=== PATIENT | male | born 1975 | race Caucasian/White ===

== ENCOUNTER 2019-07-18 15:48 | Emergency (ER) | payer SELFPAY ==
[2019-07-18 15:49] VITALS: BP 95/64; PULSE 104; RESP 21; TEMP 36.3; O2SAT 95; BMI 18.2
--- NOTE | 2019-07-18 15:57 | RAD_ITS ---
STUDY: X-RAY - RIGHT HUMERUS REASON FOR EXAM: Male, 43 years old. Trauma TECHNIQUE: 2 view(s) of the humerus. COMPARISON: None. FINDINGS: Normal visualized humerus. There is no demonstrated fracture or osseous destructive process. There is no demonstrated soft tissue abnormality. RAD/Humerus min 2 Views IMPRESSION: Normal x-ray examination of the humerus. Incidental finding of previously described acute fracture of the mid clavicular shaft Electronically Signed: Marco Cobb MD at 16:22 EDT , Service support ,
--- NOTE | 2019-07-18 15:57 | RAD_ITS ---
STUDY: X-RAY - RIGHT CLAVICLE REASON FOR EXAM: Male, 43 years old. Trauma TECHNIQUE: 2 view(s) of the clavicle. COMPARISON: None. FINDINGS: Acute comminuted fracture of the mid clavicle with displacement and overlapping of fracture fragments. Normal visualized pulmonary apex. RAD/Clavicle IMPRESSION: Acute comminuted displaced fracture of the mid clavicle Electronically Signed: Marco Cobb MD at 16:22 EDT , Service support ,
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
[2019-07-18] MEDS: HYDROcodone Bitartrate/Apap 5/325 Tablet PO (16:03)
== END 2019-07-18 17:22 | disposition home or self-care (01) ==
PROVIDERS: Emergency Provider Emergency Medicine
DX: S42.001A Fracture of unspecified part of right clavicle, initial encounter for closed fracture (principal); V19.88XA Pedal cyclist (driver) (passenger) injured in other specified transport accidents, initial encounter; Y93.55 Activity, bike riding; Y99.8 Other external cause status; F17.200 Nicotine dependence, unspecified, uncomplicated
CPT/HCPCS: 73000; 73060; 99283

== ENCOUNTER 2019-08-28 16:13 | Emergency (ER) | payer SELFPAY ==
[2019-08-28 16:15] VITALS: BP 148/100; PULSE 122; RESP 16; TEMP 36.6; O2SAT 99; BMI 18.6
--- NOTE | 2019-08-28 16:25 | ED.VIS.GEN ---
History of Present Illness Chief Complaint: Foreign Body Narrative: 84-year-old male presents with impacted food bolus. States he was eating a hot dog 15 minutes ago when he began vomiting and cannot swallow. Arrival to the emergency department he coughed up this hotdog but then began having right shoulder pain. Recent clavicular fracture. Describes it as a muscle tightening. Denies any numbness or tingling. Denies any new injury. Past Medical History - Allergies and Home Meds Allergies/Adverse Reactions: Allergies Penicillins Allergy (Verified 08/28/19 16:15) Swelling Primary Care Physician: Care Physician,No Primary [Primary Care Provider] - Prior records reviewed: Yes Surgical History: noncontributory Smoking Status: Current every day smoker Review of Systems General: Denies: Chills, Fever, Sweats Eyes: Denies: Visual changes - bilaterally, Diplopia ENT: Denies: Rhinorrhea, Sore throat Cardiovascular: Denies: Chest pain, Palpitations Respiratory: Denies: Dyspnea, Cough, Dyspnea on exertion Gastrointestinal: Reports: Vomiting. Denies: Abdominal pain, Nausea, Diarrhea, Melena, Hematochezia Genitourinary: Denies: Dysuria, Hematuria, Frequency Musculoskeletal: Reports: Arthralgias. Denies: Back pain, Extremity Pain Skin: Denies: Rash, Wounds Neurological: Denies: Headache, Weakness, Numbness Physical Exam Vital Signs/Narrative: Vital Signs Temp Pulse Resp BP Pulse Ox 08/28/19 16:15 97.8 F 122 H 16 148/100 H 99 Inital Vital Signs reviewed: Yes General: Well nourished, Well developed, No Acute Distress Head: Normocephalic, Atraumatic Eyes: Perrl, EOMI ENT: Moist mucous membranes, No rhinorrhea Neck: Supple, Nontender Cardiovascular: Regular rate, Regular rhythm, No murmurs Respiratory: No distress, CTA bilaterally, Chest nontender Abdomen: Soft, Nontender, Nondistended, Normal bowel sounds Back: Nontender, Normal Inspection Extremities: Nontender, No edema Skin: Normal color, No rash Neurological: Alert, Oriented x3, Cranial nerves II-XII grossly intact, Normal Strength, Normal Sensation Psychological: Normal affect, Normal Mood Diagnostic/Tx/Re-eval - Medical Decision Making Patient upon arrival is in distress secondary to suspected food bolus. He cleared it spontaneously without difficulty. Lungs clear to auscultation. Patient then began having right shoulder pain. Known clavicular fracture. Muscle massage was performed which helped the patient with his pain. He was able to return his arm to a sling. Will be discharged home with Zofran and naproxen. Asked to return for new or worsening symptoms. Patient agreeable this plan and discharged home in stable condition. ED Disposition - Plan for ED Patient: Disposition: Home or Assisted Living Diagnosis: Muscle spasm, Food impaction of esophagus Instructions: ESOPHAGEAL FOREIGN BODY, Resolved Prescriptions: Naproxen 500 mg PO BID PRN PRN #12 tab PRN Reason: Pain Score 1-5/10 Prescription Printed Ondansetron [Zofran Odt] 4 mg PO Q8H PRN PRN #12 tab PRN Reason: Nausea/Vomiting Prescription Printed Referrals: Care Physician,No Primary [Primary Care Provider] -
--- NOTE | 2019-08-28 16:35 | ED.RN ---
pt denies nausea. declined zofran. educatio refarding choking foreign body.
== END 2019-08-28 16:44 | disposition home or self-care (01) ==
PROVIDERS: Emergency Provider Emergency Medicine
DX: T18.128A Food in esophagus causing other injury, initial encounter (principal); X58.XXXA Exposure to other specified factors, initial encounter; Y93.89 Activity, other specified; M62.838 Other muscle spasm; F17.200 Nicotine dependence, unspecified, uncomplicated
CPT/HCPCS: 99284

== ENCOUNTER 2019-09-24 23:35 | Emergency (ER) | payer SELFPAY ==
[2019-09-24 23:37] VITALS: BP 136/95; PULSE 95; RESP 20; TEMP 37.2; O2SAT 98; BMI 18.7
--- NOTE | 2019-09-24 23:39 | ED.VIS.GEN ---
History of Present Illness Chief Complaint: Foreign Body Narrative: Patient is a 44-year-old male who presents with chief complaint of choking. He initially refused triage process yelling out that he was choking to and demanding that someone give him the Heimlich maneuver. He states he was eating a pork chop 20 minutes ago and feels like something is stuck in his throat. He is unable to swallow his secretions and is spitting these up. He notes 1 episode of prior similar symptoms with a hot dog which she was eventually able to spit up. He denies any medical history or daily medications. He is otherwise recently been well. Past Medical History - Allergies and Home Meds Allergies/Adverse Reactions: Allergies Penicillins Allergy (Verified 09/24/19 23:36) Swelling Primary Care Physician: Care Physician,No Primary [Primary Care Provider] - Past Medical History: None Surgical History: noncontributory Smoking Status: Never smoker Review of Systems ROS: Unable to Obtain - Uncooperative Physical Exam Inital Vital Signs reviewed: Yes General: Acute Distress, - - Patient standing at the sink spitting into it Head: Normocephalic Eyes: EOMI ENT: Moist mucous membranes, - - Oropharynx clear Neck: Supple Cardiovascular: Regular rate, Regular rhythm Respiratory: No distress, CTA bilaterally Abdomen: Soft, Nontender, Nondistended Skin: Normal color Neurological: Alert Psychological: - - Patient is extremely anxious Diagnostic/Tx/Re-eval - Medical Decision Making Patient's airway is clearly intact. He has clear speech and is able to speak in full long sentences. His presentation is most consistent with an esophageal impaction. IV glucagon as well as Zofran for nausea and Ativan for anxiety ordered. On reevaluation he is resting comfortably but reports no change in his symptoms. I spoke to Dr. Bruner who is on-call for general surgery. She does not perform endoscopy for esophageal impaction. Therefore I discussed the need for transfer with the patient to a facility with gastroenterology available. Patient refuses transfer. He states I am not going somewhere else just to be charged a bunch of money again to get a piece of meat out of my throat. I explained the potential complications that should this not be addressed including esophageal perforation, sepsis, . He states he is willing to accept these risks and signed out AGAINST MEDICAL ADVICE. ED Disposition - Plan for ED Patient: Disposition: Home or Assisted Living Diagnosis: Food impaction of esophagus Referrals: Care Physician,No Primary [Primary Care Provider] - Additional Instructions: You were seen today due to a piece of pork chop stuck in your throat. This did not resolve with medications. We discussed that you needed to be transferred to another hospital with the type of doctor that could perform a scope to fix the problem. You refused transfer. Potential complications include perforation (a hole in the esophagus which is the tube from the mouth to the stomach) which could lead to infection, organ failure, . You are welcome to return for reevaluation at any point. It is very important that you follow-up if symptoms do not resolve.
[2019-09-24] MEDS: Glucagon 1 MG/ML Syringe IV (23:53)
[2019-09-24] MEDS: LORazepam 2 MG/ML Syringe 1 MG IV (23:53)
[2019-09-24] MEDS: Ondansetron 4 MG/2 ML Vial IV (23:53)
[2019-09-25 00:30] VITALS: RESP 16
--- NOTE | 2019-09-25 00:30 | ED.RN ---
DR. COX SPOKE TO PT AND EXPLAINED THAT PATIENT WOULD NEED TRANSFERRED TO A HIGHER LEVEL OF CARE TO REMOVE FB. PT DECLINES TRANSFER STATING HE DON'T WANT ANOTHER BILL. PT VERBALIZED UNDERSTANDING OF [facility] INSTRUCTIONS BUT REFUSED TO TAKE HIS COPIES OF PAPERWORK WITH HIM STATING THAT HE DOESN'T NEED THEM. PT'S FRIEND CAME TO PICK HIM UP
== END 2019-09-25 00:33 | disposition home or self-care (01) ==
PROVIDERS: Emergency Provider Emergency Medicine
DX: T18.128A Food in esophagus causing other injury, initial encounter (principal); X58.XXXA Exposure to other specified factors, initial encounter; Y93.89 Activity, other specified; Z53.29 Procedure and treatment not carried out because of patient's decision for other reasons
CPT/HCPCS: 96374; 96375; 99283; A4216; J1610; J2405

== ENCOUNTER 2020-08-27 00:38 | Emergency (ER) | payer SELFPAY ==
[2020-08-27 00:39] VITALS: BP 125/80; PULSE 124; RESP 18; TEMP 36.7; O2SAT 93; BMI 19.9
--- NOTE | 2020-08-27 00:47 | ED.VIS.GEN ---
History of Present Illness Chief Complaint: Foreign Body Informant: Patient Onset: Today Context: Sudden Onset Timing: Continuous Current Severity: Moderate Maximum Severity: Severe Narrative: Patient is a 45-year-old male who presents to the emergency department esophageal food impaction. The patient states he was eating steak. He states he began to feel like he was choking. His significant other attempted Heimlich. The patient is having difficulty swallowing his secretions. His airway is patent. He is able to speak. He is in no respiratory distress. The patient has had the symptoms twice before. On one time, he did pass on his own. On the second time, he was encouraged that he should be transferred for GI intervention, but he however refused and left AMA. Prior similar symptoms: Yes Recent Illness/Hospitalization: No Past Medical History - Allergies and Home Meds Allergies/Adverse Reactions: Allergies Penicillins Allergy (Verified 08/27/20 00:42) Swelling Primary Care Physician: Gennaro Pinzon MD [STAFF PHYSICIAN] - Prior records reviewed: Yes Past Medical History: - - Prior esophageal food impaction Surgical History: noncontributory Smoking Status: Current every day smoker Review of Systems General: Denies: Chills, Fever, Sweats Eyes: Denies: Visual changes - bilaterally, Diplopia ENT: Denies: Rhinorrhea, Sore throat Cardiovascular: Denies: Chest pain, Palpitations Respiratory: Denies: Dyspnea, Cough, Dyspnea on exertion Gastrointestinal: Reports: Nausea, Vomiting. Denies: Abdominal pain, Diarrhea, Melena, Hematochezia Genitourinary: Denies: Dysuria, Hematuria, Frequency Musculoskeletal: Denies: Back pain, Extremity Pain Skin: Denies: Rash, Wounds Neurological: Denies: Headache, Weakness, Numbness Physical Exam Vital Signs/Narrative: Vital Signs Temp Pulse Resp BP Pulse Ox 08/27/20 00:39 98.1 F 124 H 18 125/80 H 93 Inital Vital Signs reviewed: Yes General: Well nourished, Well developed, No Acute Distress Head: Normocephalic, Atraumatic Eyes: Perrl, EOMI ENT: Moist mucous membranes, No rhinorrhea Neck: Supple, Nontender Cardiovascular: Regular rate, Regular rhythm, No murmurs Respiratory: No distress, CTA bilaterally, Chest nontender Abdomen: Soft, Nontender, Nondistended, Normal bowel sounds Back: Nontender, Normal Inspection Extremities: Nontender, No edema Skin: Normal color, No rash Neurological: Alert, Oriented x3, Cranial nerves II-XII grossly intact, Normal Strength, Normal Sensation Psychological: Normal affect, Normal Mood Diagnostic/Tx/Re-eval - Medical Decision Making The patient was complaining of significant distress when he arrived. However, his airway is patent. He has no trismus or stridor. I can visualize the tip of his epiglottis without evidence of foreign body or erythema. IV was established. I had immediately contacted surgery as the surgeon was in-house doing an operative case. Plan was to proceed with endoscopy. The patient was given glucagon and Ativan. He was able to expel the foreign body. He was then able to drink. He does not want further work-up. I do feel that he would benefit from outpatient endoscopy given his recurrent history. The patient will be given outpatient surgical follow-up. He will be discharged home. Impression 1. Esophageal food bolus-resolved ED Disposition - Plan for ED Patient: Instructions: ED Foreign Body Esophageal Rslv Referrals: Gennaro Pinzon MD [STAFF PHYSICIAN] -
[2020-08-27] MEDS: LORazepam 2 MG/ML Syringe 1 MG IV (00:59)
[2020-08-27] MEDS: 0.9% Normal Saline 1,000 ML 1000 ML IV (01:00)
[2020-08-27] MEDS: Glucagon 1 MG/ML Syringe IV (01:00)
--- NOTE | 2020-08-27 01:05 | ED.RN ---
pt screaming that he wants his and doesn't trust us. pt keeps sticking his fingers in the back of his throat. eductaed pt to stop doing that. pt continues to put his fingers in his throat. aware.
--- NOTE | 2020-08-27 01:59 | ED.RN ---
PT LEFT PRIOR TO D/C INSTRUCTIONS. IV DISCONTINUED BY BLESSING GUTIERREZ.
== END 2020-08-27 02:02 | disposition home or self-care (01) ==
LOC: ED 01:09
PROVIDERS: Emergency Provider Emergency Medicine
DX: T18.128A Food in esophagus causing other injury, initial encounter (principal); F17.200 Nicotine dependence, unspecified, uncomplicated
CPT/HCPCS: 96374; 96375; 99283; A4216; J1610

== ENCOUNTER 2025-05-15 11:42 | Outpatient (REF) | payer SELFPAY ==
[2025-05-15 11:44] VITALS: BP 120/87; PULSE 96; RESP 23; TEMP 36.6; O2SAT 98; BMI 17.7
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
--- NOTE | 2025-05-15 12:20 | RAD_ITS ---
PROCEDURE: CHEST 1 VIEW (PORTABLE) 05/15/2025 REASON FOR EXAM: CHOKING TECHNIQUE: Frontal view of the chest. COMPARISON: None FINDINGS: Hardware: EKG electrodes are seen. Heart: Cardiac and mediastinal contours are stable. Lungs: Hyperinflation. Findings suggestive of emphysematous changes with decreased bronchovascular markings in the upper lobes more prominent on the right side. Bones: Degenerative changes are identified within the thoracic spine. Other: RAD/Chest 1 View (Portable) IMPRESSION: Hyperinflation. The lungs are clear. Reading Location: [place] [id number]
[2025-05-15 12:45] VITALS: BP 138/98; PULSE 74; O2SAT 99
[2025-05-15 12:59] VITALS: BP 138/98; PULSE 74; RESP 23; TEMP 36.6; O2SAT 99
== END 2025-05-15 13:00 ==
LOC: ED 11:42
PROVIDERS: Visit Provider Emergency Medicine
DX: T17.920A Food in respiratory tract, part unspecified causing asphyxiation, initial encounter; Y92.149 Unspecified place in prison as the place of occurrence of the external cause; F17.210 Nicotine dependence, cigarettes, uncomplicated
CPT/HCPCS: 71045; 82803; A4216